=== PATIENT | male | born 1945 | race Caucasian/White ===

== ENCOUNTER 2018-06-09 19:30 | Outpatient (CLI) | payer MEDICARE | END 2018-06-09 19:31 | disposition home or self-care (01) | LOC: SLEEPLAB 19:30 | PROVIDERS: ATTEND Family Medicine | DX: G47.33 Obstructive sleep apnea (adult) (pediatric) (principal); I11.9 Hypertensive heart disease without heart failure; I25.10 Atherosclerotic heart disease of native coronary artery without angina pectoris; E66.9 Obesity, unspecified; R06.83 Snoring; Z68.35 Body mass index [BMI] 35.0-35.9, adult | CPT/HCPCS: 95810 ==

== ENCOUNTER 2018-07-10 20:30 | Outpatient (CLI) | payer MEDICARE | END 2018-07-10 20:31 | disposition home or self-care (01) | LOC: SLEEPLAB 20:30 | PROVIDERS: ATTEND Family Medicine | DX: G47.33 Obstructive sleep apnea (adult) (pediatric) (principal); I11.9 Hypertensive heart disease without heart failure; I25.10 Atherosclerotic heart disease of native coronary artery without angina pectoris; E66.9 Obesity, unspecified; R09.89 Other specified symptoms and signs involving the circulatory and respiratory systems; R06.83 Snoring; Z68.35 Body mass index [BMI] 35.0-35.9, adult | CPT/HCPCS: 95811 ==

== ENCOUNTER 2021-02-10 08:22 | Outpatient (CLI) | payer MEDICARE ==
[2021-02-10 09:51] LABS: Bilirubin Neg (Negative); Blood, Urine Negative (Negative); Clarity Clear (Clear); Glucose, Urine (Dipstick) Normal (Negative); Ketone, Urine Negative (Negative); Leukocyte Negative (Negative); Nitrite Negative (Negative); Protein, Urine (Dipstick) Negative (Neg-Trace); Urobilinogen Normal mg/dL (Less than 2)
[2021-02-10 10:08] LABS: #Eosinphils 0.1 10x3/uL (0.0-0.5); #Monocytes 0.5 10x3/uL (0.0-1.1); #Neutrophils 2.6 10x3/uL (1.5-8.4); %Basophils 0.4 % (0.0-2.0); %Eosinophils 1.6 % (0.0-6.0); %Lymphocytes 40.4 % (18.0-47.0); %Monocytes 9.5 % (0.0-10.0); %Neutrophils 47.4 % (40.0-75.0); Hemoglobin 15.3 g/dL (13.5-17.5); Mean Corpuscular HGB CONC 35.3 g/dL (32.0-36.0); Mean Corpuscular Hemoglobin 32.1 pg (27.0-33.0); Mean Platelet Volume 10.9 fl (7.4-10.4); Platelet Count 204 10x3/uL (150-450); RBC Distribution Width 12.7 % (11.5-14.5); Red Blood Cell (RBC) Count 4.77 10x6/uL (4.32-5.72); White Blood Cell (WBC) Count 5.5 10x3/uL (3.5-10.5)
[2021-02-10 10:27] LABS: INR-International Normal Ratio 1.1; Prothrombin Time 11.9 sec (9.5-12.1)
[2021-02-10 10:48] LABS: Bacteria/HPF Rare-Few HPF (None Seen); RBC/HPF 0-3 HPF (0-3); Squamous Epithelial 0-3 HPF (0-3); WBC/HPF 0-3 HPF (0-3)
[2021-02-10 11:31] LABS: Anion Gap 16 mmol/L (10-20); BUN (Urea Nitrogen) 15 mg/dL (8.4-25.7); Calc. Creatinine Clearance 0 mL/min (70-130); Calcium 9.6 mg/dL (7.8-10.44); Carbon Dioxide 25 mmol/L (23-31); Chloride 103 mmol/L (98-107); Glucose 93 mg/dL (83-110); Potassium 4.5 mmol/L (3.5-5.1); Sodium 139 mmol/L (136-145)
[2021-02-10 21:33] LABS: SARS-CoV-2 PCR by NAA Not Detected (NotDetected)
== END 2021-02-10 08:23 | disposition home or self-care (01) ==
LOC: LABBT 08:22
PROVIDERS: ATTEND Orthopaedic Surgery
DX: Z01.818 Encounter for other preprocedural examination (principal); Z20.822 Contact with and (suspected) exposure to COVID-19; M17.11 Unilateral primary osteoarthritis, right knee
CPT/HCPCS: 80048; 81001; 85025; 85610; 87081; 93005; U0003; U0005; 87635; 93010

== ENCOUNTER 2021-02-15 05:27 | Day surgery (SDC) | payer MEDICARE ==
[2021-02-11 12:47] VITALS: BMI 38.6
[2021-02-15] MEDS ORDERED: Tranexamic Acid 1,000 MG/10 ML VIAL ONE ×2 (05:55→09:43)
[2021-02-15] MEDS ORDERED: Sodium Chloride 0.9% 100 ML ONE (05:55)
[2021-02-15] MEDS ORDERED: VANCOMYCIN 2 GRAM/400 ML BAG 2 GM in Premix Bag 1 BAG IVPB SCH ×2 (06:00→18:00)
[2021-02-15] MEDS ORDERED: Fentanyl 100 MCG/2 ML VIAL ONE ×4 (06:11→09:43)
[2021-02-15] MEDS ORDERED: Midazolam HCl 2 mg/2 ml Vial ONE (06:38)
[2021-02-15] MEDS ORDERED: Lidocaine 1% (PF) 30 ML VIAL ONE (06:38)
[2021-02-15] MEDS ORDERED: Zolpidem Tartrate 5 MG TAB PO PRN ×2 (07:14→08:00)
[2021-02-15] MEDS ORDERED: Promethazine HCl 25 MG/ML VIAL IM PRN ×2 (07:14→08:00)
[2021-02-15] MEDS ORDERED: HYDROcodone/Acetaminophen 10/325 mg Tablet PO PRN ×3 (07:14→08:00)
[2021-02-15] MEDS ORDERED: diphenhydrAMINE 25 MG CAP PO PRN (07:14)
[2021-02-15] MEDS ORDERED: Acetaminophen 325 MG TAB PO PRN (07:14)
[2021-02-15] MEDS ORDERED: Fentanyl 100 MCG/2 ML VIAL SLOW IVP PRN ×2 (07:14→07:48)
[2021-02-15] MEDS ORDERED: Ondansetron PF 4 MG/2 ML Vial IVP PRN ×2 (07:14→08:00)
[2021-02-15] MEDS ORDERED: Bupivacaine HCl 0.5%/Epinephrine 1:200,000/PF 30 ml Vial ONE (07:15)
[2021-02-15] MEDS ORDERED: ePHEDrine Sulfate 50 MG/10 ML VIAL ONE (07:15)
[2021-02-15] MEDS ORDERED: PROPOFOL 200 MG/20 ML VIAL ONE (07:15)
[2021-02-15] MEDS ORDERED: Ketorolac Tromethamine 30 MG/ML VIAL ONE (07:15)
[2021-02-15] MEDS ORDERED: Dexamethasone 20 MG/5 ML VIAL ONE (07:15)
[2021-02-15] MEDS ORDERED: Ondansetron PF 4 MG/2 ML Vial ONE (07:15)
[2021-02-15] MEDS ORDERED: Ropivacaine 2% HCl/PF (20 MG/10 ML VIAL) ONE (07:15)
[2021-02-15] MEDS ORDERED: Tranexamic Acid 1,000 MG in Sodium Chloride 0.9% 100 ML IVPB SCH (07:15)
[2021-02-15] MEDS ORDERED: Losartan 25 MG TAB PO PRN (07:24)
[2021-02-15] MEDS ORDERED: Bupivacaine PF 0.5% 30 ML VIAL ONE (07:42)
[2021-02-15] MEDS ORDERED: traMADol HCl 50 MG TAB PO PRN ×2 (08:00)
[2021-02-15] MEDS ORDERED: Ropivacaine HCl/PF 250 ML in Premix Bag 1 BAG NERVE BLCK SCH (08:00)
[2021-02-15] MEDS ORDERED: Aspirin 81 mg Enteric Coated Tablet PO SCH (09:00)
[2021-02-15] MEDS ORDERED: Carvedilol 3.125 MG TAB PO PRN (09:00)
[2021-02-15] MEDS ORDERED: Non-Formulary Medication 1 EACH PO PRN (09:55)
[2021-02-15] MEDS ORDERED: Promethazine HCl 25 MG/ML VIAL IM/IV PRN (10:00)
[2021-02-15] MEDS ORDERED: Ondansetron HCl/PF 4 MG/2 ML Vial IVP PRN (10:00)
[2021-02-15] MEDS: Sodium Chloride 0.9% 1,000 ML IV SCH ×2 (10:23→14:54)
[2021-02-15] MEDS: Aspirin 81 mg Enteric Coated Tablet PO SCH ×2 (10:23→20:58)
[2021-02-15] MEDS: Ferrous Gluconate 324 MG TAB PO SCH ×2 (10:24→20:58)
[2021-02-15] MEDS: Finasteride 5 MG TAB PO SCH (10:24)
[2021-02-15] MEDS: Cholecalciferol 1,000 UNITS (25 MCG) TAB PO SCH (10:24)
[2021-02-15] MEDS: PARoxetine 20 MG TAB PO SCH (10:24)
[2021-02-15] MEDS: CEFAZOLIN 2 GM in Premix Bag 1 BAG IVPB SCH ×2 (14:55→21:01)
[2021-02-15] MEDS: Ketorolac Tromethamine 30 MG/ML VIAL IVP SCH ×2 (14:57→20:59)
[2021-02-15] MEDS: Atorvastatin Calcium 40 MG TAB PO SCH (20:59)
[2021-02-16] MEDS: Ketorolac Tromethamine 30 MG/ML VIAL IVP SCH ×3 (05:34→22:13)
[2021-02-16 06:05] LABS: Hemoglobin 12.1 g/dL (14.0-18.0); Mean Corpuscular HGB CONC 33.5 g/dL (32.0-36.0); Mean Corpuscular Hemoglobin 32.6 pg (27.0-31.0); Mean Corpuscular Volume 97.3 fL (78.0-98.0); Mean Platelet Volume 8.3 fL (7.4-10.4); Platelet Count 158 thou/uL (130-400); Red Blood Cell (RBC) Count 3.71 mill/uL (4.70-6.10); White Blood Cell (WBC) Count 8.1 thou/uL (4.8-10.8)
[2021-02-16] MEDS: HYDROcodone/Acetaminophen 10/325 mg Tablet PO PRN ×3 (09:41→19:07)
[2021-02-16] MEDS: Sodium Chloride 0.9% 1,000 ML IV SCH ×3 (09:41→23:04)
[2021-02-16] MEDS: Ferrous Gluconate 324 MG TAB PO SCH ×2 (09:42→20:06)
[2021-02-16] MEDS: Multivitamin W/ Minerals 1 TAB PO SCH (09:42)
[2021-02-16] MEDS: Cholecalciferol 1,000 UNITS (25 MCG) TAB PO SCH (09:42)
[2021-02-16] MEDS: Senokot S 8.6-50 MG TAB PO SCH ×2 (09:42→20:06)
[2021-02-16] MEDS: Aspirin 81 mg Enteric Coated Tablet PO SCH ×2 (09:42→20:05)
[2021-02-16] MEDS: Finasteride 5 MG TAB PO SCH (09:43)
[2021-02-16] MEDS: PARoxetine 20 MG TAB PO SCH (09:43)
[2021-02-16] MEDS: Atorvastatin Calcium 40 MG TAB PO SCH (20:06)
[2021-02-17] MEDS: Ketorolac Tromethamine 30 MG/ML VIAL IVP SCH ×2 (05:25→14:06)
[2021-02-17 05:55] LABS: Hemoglobin 12.2 g/dL (14.0-18.0); Mean Corpuscular Hemoglobin 34.1 pg (27.0-31.0); Mean Corpuscular Volume 97.3 fL (78.0-98.0); Mean Platelet Volume 8.3 fL (7.4-10.4); Platelet Count 146 thou/uL (130-400); RBC Distribution Width 12.1 % (11.5-14.5); Red Blood Cell (RBC) Count 3.58 mill/uL (4.70-6.10); White Blood Cell (WBC) Count 7.5 thou/uL (4.8-10.8)
[2021-02-17] MEDS: Ferrous Gluconate 324 MG TAB PO SCH (09:01)
[2021-02-17] MEDS: Cholecalciferol 1,000 UNITS (25 MCG) TAB PO SCH (09:01)
[2021-02-17] MEDS: PARoxetine 20 MG TAB PO SCH (09:01)
[2021-02-17] MEDS: Multivitamin W/ Minerals 1 TAB PO SCH (09:01)
[2021-02-17] MEDS: Senokot S 8.6-50 MG TAB PO SCH (09:01)
[2021-02-17] MEDS: Finasteride 5 MG TAB PO SCH (09:01)
[2021-02-17] MEDS: HYDROcodone/Acetaminophen 10/325 mg Tablet PO PRN ×2 (09:02→14:06)
[2021-02-17] MEDS: Aspirin 81 mg Enteric Coated Tablet PO SCH (09:02)
[2021-02-17] MEDS: Sodium Chloride 0.9% 1,000 ML IV SCH (09:49)
[2021-02-17 11:56] VITALS: BP 131/71; TEMP 98.3
== END 2021-02-17 14:55 | disposition home or self-care (01) ==
LOC: SDC 05:27 → SJJU 07:14 → SDC 02-17 14:55
PROVIDERS: ATTEND Orthopaedic Surgery
PROC: 0SRC0J9 Replacement of Right Knee Joint with Synthetic Substitute, Cemented, Open Approach (ICD-10-PCS; principal; 2021-02-15)
PROC: 8E0YXBZ Computer Assisted Procedure of Lower Extremity (ICD-10-PCS; 2021-02-15)
DX: M17.11 Unilateral primary osteoarthritis, right knee (principal); Z79.82 Long term (current) use of aspirin; Z79.899 Other long term (current) drug therapy; Z88.8 Allergy status to other drugs, medicaments and biological substances; Z95.1 Presence of aortocoronary bypass graft
CPT/HCPCS: 20985; 27447; 85027; 97110 ×2; 97116 ×3; 97139 ×5; 97530; C1713; C1776; 36415; J0690; J1100; J1885; J2001; J2250; J2405; J2704; J2795; J3010; J3370; J3490; S0020